=== PATIENT | male | born 1985 | race Caucasian/White ===

== ENCOUNTER 2018-02-18 11:38 | Emergency (ER) | payer SELFPAY ==
[2018-02-18 11:45] VITALS: BP 147/88; PULSE 96; TEMP 98.6; BMI 28.1
[2018-02-18] MEDS ORDERED: SODIUM CHLORIDE 0.9% 500 ML INFUS.BAG IV ONE (12:48)
[2018-02-18] MEDS ORDERED: ONDANSETRON *ODT* 4 MG TABLET SL ONE (12:48)
--- NOTE | 2018-02-18 12:50 | PDOC ---
History of Present Illness - General Chief Complaint: Abscess Boil Stated Complaint: ABSCESS Time Seen by Provider: 02/18/18 12:39 - History of Present Illness Initial Comments: 02/18/18 13:14 32 -year-old male without comorbidities presents for evaluation of a painful mass on his left forearm. He states used IV drugs about 3 weeks ago and developed this painful mass. No systemic symptoms Past History - Past Medical History Allergies/Adverse Reactions: Allergies Allergy/AdvReac Type Severity Reaction Status Date / Time No Known Allergies Allergy Verified 02/18/18 12:52 Home Medications: Ambulatory Orders Cephalexin [Keflex] 500 mg PO QID #40 capsule 02/18/18 Ibuprofen [Motrin -] 600 mg PO TID #30 tablet 02/18/18 Sulfamethoxazole/Trimethoprim [Bactrim Ds -] 1 tab PO BID #14 tablet 02/18/18 COPD: No - Immunization History Immunization Up to Date: Yes - Suicide/Smoking/Psychosocial Hx Smoking History: Current every day smoker Number of Cigarettes Smoked Daily: 10 Information on smoking cessation initiated: No Drug/Substance Use Hx: Yes (heroin) Substance Use Type: Heroin Review of Systems - Review of Systems Constitutional: No: Fever Integumentary: Yes: Erythema, Lesions *Physical Exam - Vital Signs Last Vital Signs Temp Pulse Resp BP Pulse Ox 98.6 F 96 H 16 147/88 99 02/18/18 11:42 02/18/18 11:42 02/18/18 11:42 02/18/18 11:42 02/18/18 11:42 - Physical Exam Comments: 02/18/18 13:15 There is a 2 cm circumferential raised fluctuant erythemic and mildly indurated area on the volar aspect of the mid left forearm track love are noted no gross sensorimotor deficits. Moderate Sedation - Procedure Monitoring Vital Signs: Procedure Monitoring Vital Signs Temperature 98.6 F 02/18/18 11:42 Pulse Rate 96 H 02/18/18 11:42 Respiratory Rate 16 02/18/18 11:42 Blood Pressure 147/88 02/18/18 11:42 O2 Sat by Pulse Oximetry (%) 99 02/18/18 11:42 Medical Decision Making - Medical Decision Making 02/18/18 13:16 Under aseptic technique 6 mL of 1% lidocaine was used to anesthetize the area an 11 blade was used to incise the area of fluctuance the area was cultured deloculated and packed with quarter-inch iodoform and a dry sterile dressing was placed *DC/Admit/Observation/Transfer Diagnosis at time of Disposition: Abscess - Discharge Dispostion Disposition: HOME Condition at time of disposition: Stable Decision to Admit order: No - Prescriptions Prescriptions: Cephalexin [Keflex] 500 mg PO QID #40 capsule Ibuprofen [Motrin -] 600 mg PO TID #30 tablet Sulfamethoxazole/Trimethoprim [Bactrim Ds -] 1 tab PO BID #14 tablet - Referrals Referrals: Vasquez Paez MD [Staff Physician] - - Patient Instructions Additional Instructions: Please take the antibiotics as directed. Return to the emergency room should symptoms worsen or go unresolved. I've also given you a prescription for Motrin it's one tablet 3 times a day with food please discontinue the medication if it bothers her stomach. Return to the emergency room in 48 hours for packing removal and wound check or he may follow-up with general surgery if she need additional medication he may take Tylenol for pain. Do not take any other medications or should heroin while on the antibiotics Motrin and Tylenol. Keep the wound area and the dressing clean and dry do not shower until seen again in 48 hours - Post Discharge Activity
== END 2018-02-18 13:38 | disposition home or self-care (01) ==
LOC: JERFT 11:38
PROC: 0J9F0ZZ Drainage of Left Upper Arm Subcutaneous Tissue and Fascia, Open Approach (ICD-10-PCS; principal; 2018-02-18)
DX: L02.414 Cutaneous abscess of left upper limb (principal)
CPT/HCPCS: 87070; 87205; 99281-25

== ENCOUNTER 2018-02-20 11:57 | Emergency (ER) | payer OTHER ==
[2018-02-20 12:30] VITALS: BP 119/86; PULSE 92; TEMP 98.2; BMI 28.1
--- NOTE | 2018-02-20 12:50 | PDOC ---
Suture Removal/Wound Check HPI - History of Present Illness Chief Complaint: Revisit,Wound Recheck Stated Complaint: REVISIT, FOLLOW UP Time Seen by Provider: 02/20/18 12:38 History Source: Yes: Patient Exam Limitations: Yes: No Limitations Treated at[facility] Date of Last ED visit: 02/18/18 - Previous ED Treatment Type of procedure performed on last visit: Yes: I&D of Abscess (left forearm abscess drained) Past History - Past Medical History Allergies/Adverse Reactions: Allergies Allergy/AdvReac Type Severity Reaction Status Date / Time No Known Allergies Allergy Verified 02/20/18 12:26 Home Medications: Ambulatory Orders Cephalexin [Keflex] 500 mg PO QID #40 capsule 02/18/18 Ibuprofen [Motrin -] 600 mg PO TID #30 tablet 02/18/18 Sulfamethoxazole/Trimethoprim [Bactrim Ds -] 1 tab PO BID #14 tablet 02/18/18 COPD: No - Immunization History Immunization Up to Date: Yes - Suicide/Smoking/Psychosocial Hx Smoking History: Never smoked Number of Cigarettes Smoked Daily: 10 Information on smoking cessation initiated: No Hx Alcohol Use: No Drug/Substance Use Hx: No Substance Use Type: Heroin Suture Removal/Wound Check PE - Physical Exam Laceration/Wound Check Symptoms: reports: Pain Comments: 02/20/18 16:53 pt with abscess to the left forearm that was drained 2 days ago here for packing removal. left forearm is without redness or drainage, open wound noted healing well. *Review of Systems - Review of Systems Able to Perform ROS?: Yes Constitutional: No: Symptoms Reported HEENTM: No: Symptoms Reported Respiratory: No: Symptoms reported Cardiac (ROS): No: Symptoms Reported ABD/GI: No: Symptoms Reported : No: Symptoms Reported Musculoskeletal: No: Symptoms Reported Integumentary: Yes: Symptoms Reported *Physical Exam - Vital Signs Last Vital Signs Temp Pulse Resp BP Pulse Ox 98.2 F 92 H 16 119/86 99 02/20/18 12:26 02/20/18 12:26 02/20/18 12:26 02/20/18 12:26 02/20/18 12:26 - Physical Exam General Appearance: Yes: Nourished, Appropriately Dressed HEENT: positive: EOMI, LI Integumentary: positive: Normal Color, Other (left forearm with healing abscess. packing removed , no pus draining CDI ) Moderate Sedation - Procedure Monitoring Vital Signs: Procedure Monitoring Vital Signs Temperature 98.2 F 02/20/18 12:26 Pulse Rate 92 H 02/20/18 12:26 Respiratory Rate 16 02/20/18 12:26 Blood Pressure 119/86 02/20/18 12:26 O2 Sat by Pulse Oximetry (%) 99 02/20/18 12:26 Medical Decision Making - Medical Decision Making 02/20/18 16:55 cc: packing removal healing well covered with bandaid dc inst verbally given pt understands the plan of care all questions asked and answered *DC/Admit/Observation/Transfer Diagnosis at time of Disposition: Visit for wound check - Discharge Dispostion Disposition: HOME Condition at time of disposition: Good - Referrals Referrals: Tez Cavazos MD [Staff Physician] - - Patient Instructions Additional Instructions: keep dry and covered until healed follow with the surgeon if any worsening symptoms - Post Discharge Activity
== END 2018-02-20 13:01 | disposition home or self-care (01) ==
LOC: JERFT 11:57
DX: Z48.817 Encounter for surgical aftercare following surgery on the skin and subcutaneous tissue (principal); Z48.01 Encounter for change or removal of surgical wound dressing
CPT/HCPCS: 99281-25

== ENCOUNTER 2024-04-17 16:32 | Inpatient (IN) | payer OTHER ==
[2024-04-17 17:11] VITALS: BMI 23.4
[2024-04-17] MEDS ORDERED: guaiFENesin 600 MG TABLET.ER (FP) PO PRN (18:14)
[2024-04-17] MEDS ORDERED: BENZONATATE 200 MG CAPSULE PO PRN (18:14)
[2024-04-17] MEDS ORDERED: POLYETHYLENE GLYCOL (HEALTHYLAX) 3350 17 GM PACKET PO PRN (18:14)
[2024-04-17] MEDS ORDERED: MAGNESIUM HYDROX 2400MG/30ML ORAL SUSPENSION 30 ML CUP PO PRN (18:14)
[2024-04-17] MEDS ORDERED: LOPERAMIDE HCL 2 MG CAPSULE PO PRN (18:14)
[2024-04-17] MEDS ORDERED: IBUPROFEN 400 MG TABLET (FP) PO PRN (18:14)
[2024-04-17] MEDS ORDERED: NALOXONE (NARCAN) HCL 4 MG/0.1 ML SPRAY NS PRN (18:14)
[2024-04-17] MEDS: FLUOCINONIDE 0.05% TOP OINT (60 GM TUBE) TP SCH (21:56)
[2024-04-17] MEDS: THIAMINE 100 MG TABLET PO SCH (21:57)
[2024-04-17] MEDS: MELATONIN 5 MG TABLETS PO SCH (21:57)
[2024-04-17] MEDS: clonazePAM 0.5 MG ODT TABLETS SL ONE ×2 (21:58→22:00)
[2024-04-18 09:12] LABS: HEMATOCRIT 35.5 % (35.4-49); HEMOGLOBIN 11.2 GM/dL (11.7-16.9); MCH 25.1 pg (25.7-33.7); MCHC 31.4 g/dl (32.0-35.9); MEAN CELL VOLUME 79.9 fl (80-96); MEAN PLT VOLUME 7.4 fl (7.5-11.1); PLATELET COUNT 244 10^3/uL (134-434); RBC 4.44 M/mm3 (4.00-5.60); RDW 14.3 % (11.9-15.9); WHITE BLOOD COUNT 5.9 K/mm3 (4.0-10.0)
[2024-04-18 09:23] LABS: CHLORIDE 102 mmol/L (98-107); POTASSIUM 4.6 mmol/L (3.5-5.1); SODIUM 137 mmol/L (136-145)
[2024-04-18 09:41] LABS: ALBUMIN 3.2 g/dl (3.4-5.0); ANION GAP 2 mmol/L (4-13); CALCIUM 9.1 mg/dL (8.5-10.1); CO2 33 mmol/L (21-32); GLUCOSE,RANDOM 86 mg/dL (74-106)
[2024-04-18 09:42] LABS: BLOOD UREA NITROGEN 13.6 mg/dL (7-18)
[2024-04-18 09:44] LABS: CREATININE 0.8 mg/dL (0.55-1.3); SGOT/AST 13 U/L (15-37)
[2024-04-18 09:45] LABS: SGPT/ALT 18 U/L (13-61)
[2024-04-18 09:46] LABS: BILIRUBIN,TOTAL 0.3 mg/dL (0.2-1); TOT PROT 7.1 g/dl (6.4-8.2)
[2024-04-18 09:47] LABS: ALK PHOS 110 U/L (45-117)
[2024-04-18] MEDS ORDERED: methaDONE HCL 10 MG TABLET PO ONE (10:00)
[2024-04-18] MEDS: PRENATAL VITAMINS W/ FOLIC ACID TABLET (FP) PO SCH (10:16)
[2024-04-18] MEDS: clonazePAM 0.5 MG ODT TABLETS SL ONE (10:17)
[2024-04-18 11:39] LABS: SYPHILIS W/ RPR CONF NON-REACTIVE (NONREACTIVE)
[2024-04-18] MEDS: clonazePAM 0.5 MG ODT TABLETS SL SCH (17:29)
[2024-04-18] MEDS: QUEtiapine FUMARATE 100 MG TABLET (FP) PO SCH (21:05)
[2024-04-18] MEDS: hydrOXYzine PAMOATE 25 MG CAPSULE (FP) PO PRN (21:06)
[2024-04-19] MEDS ORDERED: methaDONE HCL 40 MG DISPERSABLE TABLET PO SCH (06:00)
[2024-04-19] MEDS: clonazePAM 0.5 MG ODT TABLETS SL SCH (09:40)
[2024-04-19] MEDS: NICOTINE 14 MG/24 HOURS TOPICAL PATCH TD SCH (10:20)
[2024-04-19] MEDS: NICOTINE POLACRILEX 2 MG LOZENGE BC PRN (10:21)
[2024-04-19] MEDS: IBUPROFEN 600 MG TABLET (FP) PO PRN (16:37)
[2024-04-19] MEDS: NICOTINE POLACRILEX 2 MG GUM BUC PRN (21:02)
[2024-04-19] MEDS: ACETAMINOPHEN 325 MG TABLET (FP) PO PRN (21:03)
[2024-04-20 11:56] LABS: URINE APPEARANCE CLEAR; URINE BILIRUBIN NEGATIVE (NEGATIVE); URINE COLOR YELLOW; URINE GLUCOSE (UA) NEGATIVE (NEGATIVE); URINE KETONE NEGATIVE (NEGATIVE); URINE LEUK ESTERASE NEGATIVE (NEGATIVE); URINE NITRITE NEGATIVE (NEGATIVE); URINE PROTEIN NEGATIVE (NEGATIVE); URINE UROBILINOGEN 0.2 mg/dL (0.2-1.0)
[2024-04-20] MEDS: methaDONE HCL 10 MG TABLET PO ONE (16:01)
[2024-04-21] MEDS ORDERED: methaDONE HCL 40 MG DISPERSABLE TABLET PO SCH (06:00)
[2024-04-22] MEDS: traZODone HCL 50 MG TABLET (FP) PO PRN (21:12)
[2024-04-23] MEDS: MAG HYDROX/AL HYDROX/SIMETH 30 ML UNIT-DOSE CUP PO PRN (13:36)
[2024-04-24] MEDS: BENZOCAINE/MENTHOL (CHLORASEPTIC ) LOZENGE MM PRN (05:31)
[2024-04-24] MEDS: methaDONE HCL 40 MG DISPERSABLE TABLET PO SCH (06:28)
[2024-04-24] MEDS: DOCUSATE SODIUM 100 MG CAPSULE (FP) PO SCH (13:23)
[2024-04-24] MEDS: BACLOFEN 10 MG TABLET (FP) PO SCH (21:06)
[2024-04-25] MEDS: NICOTINE 14 MG/24 HOURS TOPICAL PATCH TD SCH (09:44)
[2024-04-25] MEDS: clonazePAM 0.5 MG ODT TABLETS SL SCH (17:43)
[2024-04-26] MEDS: clonazePAM 0.5 MG ODT TABLETS SL SCH (09:46)
[2024-04-28] MEDS ORDERED: methaDONE HCL 40 MG DISPERSABLE TABLET PO SCH (09:34)
[2024-04-28] MEDS: HYDROCORTISONE 2.5% TOPICAL CREAM 30 GM TUBE TP PRN (16:43)
[2024-04-29] MEDS: NICOTINE 21 MG/24 HOURS TOPICAL PATCH TD SCH (10:03)
[2024-05-04] MEDS ORDERED: HYDROCORTISONE 1% TOPICAL CREAM 30 GM TUBE TP PRN (11:12)
[2024-05-05] MEDS: hydrOXYzine PAMOATE 50 MG CAPSULE (FP) PO PRN (10:11)
[2024-05-07] MEDS: clonazePAM 0.5 MG ODT TABLETS SL SCH (09:33)
[2024-05-14 06:47] VITALS: RESP 18
[2024-05-15 07:05] VITALS: TEMP 97.4
[2024-05-15 09:20] VITALS: BP 106/59; PULSE 91
== END 2024-05-15 09:50 | disposition home or self-care (01) | DRG 772 ==
LOC: YASAS 16:32 → Y3NR 19:06 → Y5N 04-18 08:54
PROVIDERS: ADMIT Allergy & Immunology; ATTEND Psychiatry & Neurology Pain Medicine
PROC: HZ42ZZZ Group Counseling for Substance Abuse Treatment, Cognitive-Behavioral (ICD-10-PCS; principal; 2024-04-17)
DX: F11.20 Opioid dependence, uncomplicated (principal); F14.20 Cocaine dependence, uncomplicated; F13.20 Sedative, hypnotic or anxiolytic dependence, uncomplicated; F12.10 Cannabis abuse, uncomplicated; F17.210 Nicotine dependence, cigarettes, uncomplicated; K59.00 Constipation, unspecified; L40.9 Psoriasis, unspecified; Z87.820 Personal history of traumatic brain injury
CPT/HCPCS: 36415; 80053; 80305; 80307; 81003; 85027; 86780; 86803; 87811; 93005; 93010; J0475